=== PATIENT | female | born 1990 | race Caucasian/White ===

== ENCOUNTER 2019-11-26 18:49 | Inpatient (IN) | payer BC ==
[~2019-11-26] VITALS: Ht 157.5 cm; Wt 111.1 kg
[2019-11-26 18:57] VITALS: BP 121/71
--- NOTE | 2019-11-26 18:59 | NUR ---
PT PLACED IN TENT FOR COVID PRECAUTIONS
--- NOTE | 2019-11-26 19:08 | NUR ---
PT AMBULATED TO BED 3 WITH STEADY GAIT
--- NOTE | 2019-11-26 19:15 | NUR ---
A3 28 Y/O FEMALE PRESENTED TO ED C/O FEVER X 4 DAYS. PT + CHILLS & BODY ACHES X 4 DAYS. PT DENIES BEING AROUND ANYONE SICK. PT STATES SHE WENT TO ER ON FRIDAY C/O BACK AND ABD PAIN AND WAS DX CONSTIPATION. PT STATES HER LBM YESTERDAY BUT IT WAS "LITTLE KIRK." PT DENIES BYRD/N/V/D/DYSURIA. PT IS CURRENTLY 28 WEEKS . PT STATES SHE TOOK TYLENOL FOR FEVER AT 1600 TODAY. PMH: NONE NKA
--- NOTE | 2019-11-26 19:18 | NUR ---
PT SAO2 100% , DENIES SOB , NO OXYGEN NEEDED AT THIS TIME.
[2019-11-26] MEDS ORDERED: NACL 0.9% 1,000 ML IV ONE ×2 (19:21→21:30)
[2019-11-26] MEDS ORDERED: cefTRIAXone 1,000 MG VIAL ONE (19:47)
--- NOTE | 2019-11-26 19:50 | NUR ---
BLOOD LABS AND CULTURES COLLECTED BY ILYA CANNON AND HANDED TO LAB.
--- NOTE | 2019-11-26 20:00 | NUR ---
XRAY AT BEDSIDE.
[2019-11-26 20:34] LABS: BASOPHILS % (AUTO) 0.2 % (0.0-2.0); EOSINOPHILS % (AUTO) 0.1 % (0.0-4.0); HEMATOCRIT 36.6 % (36-48); HEMOGLOBIN 11.7 g/dL (12.0-16.0); LYMPHOCYTES # (AUTO) 0.7 K/uL (2.5-16.5); LYMPHOCYTES % (AUTO) 4.6 % (20.5-51.1); MEAN CORPUSCULAR HEMOGLOBIN 26 pg (27-31); MEAN CORPUSCULAR HGB CONC 32 g/dL (33-37); MEAN CORPUSCULAR VOLUME 82.4 fL (80-94); MONOCYTES # (AUTO) 1.5 K/uL (0.8-1.0); MONOCYTES % (AUTO) 10.2 % (1.7-9.3); NEUTROPHILS # (AUTO) 12.7 K/uL (1.8-7.7); NEUTROPHILS % (AUTO) 84.9 % (42.2-75.2); PLATELET COUNT (AUTO) 202 K/uL (140-450); RED BLOOD CELL COUNT(AUTO) 4.45 MIL/uL (4.20-5.40); RED CELL DISTRIBUTION WIDTH 15.3 % (11.6-13.7)
[2019-11-26 20:35] LABS: APPEARANCE,URINE CLOUDY (CLEAR); BILIRUBIN,URINE NEGATIVE (NEGATIVE); BLOOD, URINE 2+ (NEGATIVE); COLOR,URINE DARK YELLOW (YELLOW); LEUKOCYTE ESTERASE ,URINE 2+ (NEGATIVE); NITRITE, URINE POSITIVE (NEGATIVE); UGLUCOSE NEGATIVE (NEGATIVE)
[2019-11-26 20:46] LABS: ALBUMIN 2.3 g/dL (3.4-5.0); CARBON DIOXIDE 21.5 mmol/L (21-32); POTASSIUM 3.5 mmol/L (3.5-5.1); TOTAL BILIRUBIN 0.5 mg/dL (0.0-1.0)
[2019-11-26] MEDS ORDERED: ACETAMINOPHEN 650 MG SUPP RC ONE (21:00)
[2019-11-26] MEDS ORDERED: ACETAMINOPHEN EXTRA STRENGTH 500 MG TAB ONE (21:04)
[2019-11-26] MEDS ORDERED: ACETAMINOPHEN EXTRA STRENGTH 500 MG TAB PO ONE (21:05)
[2019-11-26 21:12] LABS: WBC,URINE 80-100 /HPF (0-5)
[2019-11-26 21:14] LABS: RBC,URINE 11-20 (MOD) /HPF (0-5)
--- NOTE | 2019-11-26 21:45 | NUR ---
PT RESTING IN BED, LOCKED AND IN LOWEST POSITION, VISIBLE RISE AND FALL OF CHEST, RR EVEN AND UNLABORED, HOB ELEVATED , SIDE RAIL X1.
[2019-11-27] MEDS ORDERED: DOXY25TA61 PO (00:10)
[2019-11-27] MEDS ORDERED: PYRI25TA11 PO (00:10)
[2019-11-27] MEDS ORDERED: ONDA4ODT2 PO (00:10)
--- NOTE | 2019-11-27 02:29 | NUR ---
PT AMBULATED TO RESTROOM W/ STEADY GAIT
--- NOTE | 2019-11-27 02:36 | NUR ---
PT RESTING IN BED , LOCKED AND IN LOWEST POSITION, HOB ELEVATED, VISIBLE RISE AND FALL OF CHEST, RR EVEN AND UNLABORED, VSS , SIDE RAIL X1.
--- NOTE | 2019-11-27 04:15 | NUR ---
PT SLEEPING IN BED, LOCKED AND IN LOWEST POSITION, AROUSABLE BY VERBAL STIMULATION, VISIBLE RISE AND FALL OF CHEST, RR EVEN AND UNLABORED, HOB ELEVATED, SIDE RAIL X1 , VSS.
--- NOTE | 2019-11-27 06:00 | NUR ---
PT AMBULATED TO RESTROOM W/ STEADY GAIT
--- NOTE | 2019-11-27 06:04 | NUR ---
PT AMBULATED TO BED W/ STEADY GAIT . PT RESTING IN BED , LOCKED AND IN LOWEST POSITION ,HOB ELEVATED, SIDE RAIL X1. VSS, RR EVEN AND UNLABORED.
--- NOTE | 2019-11-27 07:12 | NUR ---
REPORT GIVEN TO ILYA TOM FOR TRANSFER OF CARE.
--- NOTE | 2019-11-27 07:22 | NUR ---
Pt report received from ILYA Pfeiffer. Transfer of care at this time.
--- NOTE | 2019-11-27 08:00 | NUR ---
PT C/O 12/19 FRONTAL HEADACHE. CALLED RESIDENT DR. SARMIENTO AT [phone] LEFT NO ANSWER, WILL CALL LATER.
--- NOTE | 2019-11-27 08:10 | NUR ---
BREAKFAST PROVIDED TO PT TO BEDSIDE.
--- NOTE | 2019-11-27 08:47 | NUR ---
CALLED RESIDENT [phone] LEFT NO ANSWER. WILL CALL LATER.
[2019-11-27] MEDS ORDERED: HYDROcodone/APAP 5/325 MG 1 TAB TAB PO PRN (10:25)
--- NOTE | 2019-11-27 10:30 | NUR ---
DR. SARMIENTO IS EVALUATING PT AT BEDSIDE.
[2019-11-27] MEDS ORDERED: DOCUSATE SODIUM 100 MG GELCAP PO PRN (10:50)
[2019-11-27] MEDS ORDERED: HYDROcodone/APAP 7.5/325 MG 1 TAB PO PRN (10:50)
[2019-11-27] MEDS ORDERED: ONDANSETRON 4 MG/2 ML VIAL IM/IVP PRN (10:50)
--- NOTE | 2019-11-27 11:04 | NUR ---
MRSA SWAB OBTAINED AT BEDSIDE AND SENT TO THE LAB.
[2019-11-27 11:37] LABS: BASOPHILS % (AUTO) 0.1 % (0.0-2.0); EOSINOPHILS % (AUTO) 0.2 % (0.0-4.0); HEMATOCRIT 35.7 % (36-48); HEMOGLOBIN 11.5 g/dL (12.0-16.0); LYMPHOCYTES # (AUTO) 0.9 K/uL (2.5-16.5); LYMPHOCYTES % (AUTO) 5.2 % (20.5-51.1); MEAN CORPUSCULAR HEMOGLOBIN 27 pg (27-31); MEAN CORPUSCULAR HGB CONC 32 g/dL (33-37); MEAN CORPUSCULAR VOLUME 82.2 fL (80-94); MONOCYTES # (AUTO) 2.1 K/uL (0.8-1.0); MONOCYTES % (AUTO) 12.5 % (1.7-9.3); NEUTROPHILS # (AUTO) 13.9 K/uL (1.8-7.7); PLATELET COUNT (AUTO) 190 K/uL (140-450); RED BLOOD CELL COUNT(AUTO) 4.35 MIL/uL (4.20-5.40); RED CELL DISTRIBUTION WIDTH 15.5 % (11.6-13.7); WHITE BLOOD COUNT (AUTO) 16.9 K/uL (4.8-10.8)
[2019-11-27 11:48] LABS: PROTHROMBIN TIME 10.4 secs (10.8-13.4)
[2019-11-27 11:54] LABS: ALBUMIN 2.2 g/dL (3.4-5.0); ANION GAP 14.3 (8-16); CARBON DIOXIDE 21.9 mmol/L (21-32); CREATININE 0.6 mg/dL (0.6-1.3); POTASSIUM 3.2 mmol/L (3.5-5.1); TOTAL BILIRUBIN 0.5 mg/dL (0.0-1.0)
[2019-11-27] MEDS: NACL 0.9% 1,000 ML IV SCH ×3 (12:00→20:55)
[2019-11-27 12:04] LABS: CHOL/HDL RATIO 2.2 (1-4.5); FREE T4 (FREE THYROXINE) 1.31 ng/dL (0.76-1.46); MAGNESIUM 1.6 mg/dL (1.8-2.4); PHOSPHORUS 3.6 mg/dL (2.5-4.9); THYROID STIMULATING HORMONE 2.69 uIU/mL (0.34-3.74)
--- NOTE | 2019-11-27 12:44 | NUR ---
PT IS EATING LUNCH IN THE BED. VSS SHOWED ON THE MONITOR.
--- NOTE | 2019-11-27 13:25 | NUR ---
PT AMBULATED FROM BATHROOM TO ROOM 3 WITH STEADY GAIT.
--- NOTE | 2019-11-27 14:30 | NUR ---
PT IS RESTING IN THE BED WITH EYES CLOSED. VSS SHOWED ON MONITOR.
--- NOTE | 2019-11-27 15:30 | NUR ---
PT IS RESTING IN THE BED WITH EYES CLOSED. PT IS ON THE MONITOR WILL CONTINUE MONITORING PT'S VITAL SIGNS.
--- NOTE | 2019-11-27 16:20 | NUR ---
PT STATES SHE IS HAVING 8/10 FRONTAL HEADACHE. NORCO 7.5MG PO PRN GIVEN TO PT PER DR. SARMIENTO'D ORDER.
[2019-11-27] MEDS ORDERED: HYDROcodone/APAP 5/325 MG 1 TAB TAB ONE (16:21)
[2019-11-27] MEDS ORDERED: cefTRIAXone 1,000 MG VIAL ONE (16:28)
[2019-11-27] MEDS ORDERED: POTASSIUM CHLORIDE 10 MEQ TABER PO ONE (16:36)
[2019-11-27] MEDS: POTASSIUM CHLORIDE 10 MEQ TABER PO SCH (16:37)
[2019-11-27] MEDS: MAGNESIUM OXIDE 400 MG TAB PO SCH (16:40)
--- NOTE | 2019-11-27 17:30 | NUR ---
Patient will be admitted to care of PYELONEPHRITIS. Admited to TELE. Will go to room 103B. Belongings list completed. Report to ILYA MCKINNON.
--- NOTE | 2019-11-27 17:36 | NUR ---
RECEIVED REPORT FROM ER NURSE FOR CONTINUITY OF CARE. PT IS IN STABLE CONDITION, COOPERATIVE AND TALKING. WILL ROUND FREQUENTLY ON PT. THROUGHOUT THE SHIFT.
[2019-11-27 19:15] VITALS: BP 114/48
--- NOTE | 2019-11-27 19:35 | NUR ---
ENDORSED TO MORTAR CARRIER FOR CONTINUITY OF CARE. PT IN STABLE CONDITION AT THIS TIME.
--- NOTE | 2019-11-27 19:35 | NUR ---
Admitted from EDR TO TELEMETRY UNIT , with chief complaint of LEFT FLANK PAIN FOR 4 DAYS, AND FEVER FOR 2 DAYS , 28 y/o ,Female, Cooperative, AWAKE, A/OX4. AMBULATORY TO THE BR. IV SALINE LOCK AT THE LEFT AC G20, PATENT AND INTACT. HEAD TO TO ASSESSMENT DONE WITH CHARGE NURSE FLORENCIO, SKIN IS INTACT. DENIES FLANK PAIN AT THIS TIME, 010. PLAN OF CARE FOR THE SHIFT DISCUSSED, VERBALIZED UNDERSTANDING. oriented to call light, bed, phone,television, bathroom, smoking policy,isiting hours, procedures, ID bracelet on. Belongings list checked. Addendum: 11/27/19 at 2036 by Lakshmi Delvalle LVN CORRECTION: ADMITTED FROM ER
[2019-11-27] MEDS: ACETAMINOPHEN 325 MG TAB PO PRN (20:55)
--- NOTE | 2019-11-27 20:55 | NUR ---
TEMPERATURE CHECKED - 100.4 F, MEDICATED WITH TYLENOL 650 MG. PO.
--- NOTE | 2019-11-27 22:24 | NUR ---
RESTING IN BED, AFEBRILE - 98.9 F, NO COMPLAINT OF PAIN 0/10;.
[2019-11-28] VITALS: BP 108/64
--- NOTE | 2019-11-28 | NUR ---
VS STABLE, AFEBRILE - 98.3 F.
--- NOTE | 2019-11-28 00:15 | NUR ---
Patient's Plan of Care was discussed and reviewed with BOTTLE FILLER: KUMAR DUMONT
[2019-11-28] MEDS: NACL 0.9% 1,000 ML IV SCH ×5 (01:04→19:20)
--- NOTE | 2019-11-28 02:00 | NUR ---
SLEEPING COMFORTABLY IN BED.
[2019-11-28 04:00] VITALS: BP 104/55
--- NOTE | 2019-11-28 04:00 | NUR ---
RESTING IN BED, NO FEVER NOTED.
--- NOTE | 2019-11-28 07:00 | NUR ---
CONDITION REMAIN STABLE. WILL ENDORSE TO AM SHIFT NURSE FOR CONTINUITY OF CARE.
--- NOTE | 2019-11-28 07:45 | NUR ---
RECEIVED REPORT FROM NIGHT NURSE. AOX4, NO C/O PAIN, NO SOB, RESPIRATIONS ARE EVEN AND UNLABORED, AND AFEBRILE. PT IS 28WKS . SKIN IS INTACT. IV SITE ON LAC 20G RUNNING NS AT 140CC/HR, INFUSING WELL. PLAN OF CARE DISCUSSED. PT VERBALIZED UNDERSTANDING. ON STANDARD PRECAUTIONS. SAFETY MEASURES IN PLACE. CALL LIGHT WITHIN REACH. WILL CONTINUE TO MONITOR Addendum: 11/29/19 at 0740 by Gavin Ruby RN PT IS 21 WKS
[2019-11-28 08:00] VITALS: BP 119/69
[2019-11-28 08:06] LABS: BASOPHILS # (AUTO) 0.1 K/uL (0.00-0.22); BASOPHILS % (AUTO) 0.4 % (0.0-2.0); EOSINOPHILS # (AUTO) 0.1 K/uL (0-0.4); EOSINOPHILS % (AUTO) 0.4 % (0.0-4.0); HEMATOCRIT 34.3 % (36-48); HEMOGLOBIN 10.9 g/dL (12.0-16.0); LYMPHOCYTES # (AUTO) 0.9 K/uL (2.5-16.5); MEAN CORPUSCULAR HEMOGLOBIN 26 pg (27-31); MEAN CORPUSCULAR HGB CONC 32 g/dL (33-37); MEAN CORPUSCULAR VOLUME 83.1 fL (80-94); MONOCYTES # (AUTO) 1.7 K/uL (0.8-1.0); NEUTROPHILS # (AUTO) 10.4 K/uL (1.8-7.7); PLATELET COUNT (AUTO) 183 K/uL (140-450); RED BLOOD CELL COUNT(AUTO) 4.13 MIL/uL (4.20-5.40); RED CELL DISTRIBUTION WIDTH 15.1 % (11.6-13.7)
[2019-11-28 08:09] LABS: T4 (THYROXINE) 11.5 ug/dL (4.5-12.0)
[2019-11-28 08:13] LABS: ANION GAP 16.3 (8-16); CARBON DIOXIDE 19.3 mmol/L (21-32); CREATININE 0.5 mg/dL (0.6-1.3); POTASSIUM 3.6 mmol/L (3.5-5.1)
[2019-11-28 08:19] LABS: MAGNESIUM 1.5 mg/dL (1.8-2.4); PHOSPHORUS 3.2 mg/dL (2.5-4.9)
[2019-11-28] MEDS: POTASSIUM CHLORIDE 10 MEQ TABER PO SCH (08:41)
[2019-11-28] MEDS: MAGNESIUM OXIDE 400 MG TAB PO SCH ×2 (08:41→13:35)
--- NOTE | 2019-11-28 08:45 | NUR ---
DUE MORNING MEDS GIVEN. PO MEDS TOLERATED WELL
[2019-11-28 09:24] LABS: NEUTROPHILS % (AUTO) 79.7 % (42.2-75.2)
[2019-11-28 09:25] LABS: LYMPHOCYTES % (AUTO) 6.8 % (20.5-51.1); MONOCYTES % (AUTO) 12.7 % (1.7-9.3)
--- NOTE | 2019-11-28 11:45 | NUR ---
PT IN BED. NO C/O PAIN ,RESPIRATIONS ARE EVEN AND UNLABORED, AFEBRILE
[2019-11-28 12:00] VITALS: BP 127/75
--- NOTE | 2019-11-28 14:50 | NUR ---
SEEN AND EXAMINED BY DR. MULLEN. WITH NEW ORDERS NOTED AND CARRIED OUT
[2019-11-28 16:00] VITALS: BP 124/73
--- NOTE | 2019-11-28 17:15 | NUR ---
PT AWAKE IN BED. NO COMPLAINTS AT THIS TIME. NO APPARENT DISTRESS
--- NOTE | 2019-11-28 17:30 | NUR ---
L&D NURSES CAME AND CHECKED FHR. FHR 156
--- NOTE | 2019-11-28 18:56 | NUR ---
PT AWAKE IN BED. FLACC 0, NO SOB, RESPIRATIONS ARE EVEN AND UNLABORED. WILL ENDORSE TO NEXT SHIFT FOR CONTINUITY OF CARE
[2019-11-28 20:00] VITALS: BP 125/71
--- NOTE | 2019-11-28 20:10 | NUR ---
AWAKE,ALERT AND ORIENTED.RESP.UNLABORED IN RA.LUNGS CLEAR.IVF INFUSING WELL.CALL LIGHT IN REACH.NO C/O PAIN NOW.HR IS ST.WILL CONTINUE MONITORING.
[2019-11-28] MEDS: ACETAMINOPHEN 325 MG TAB PO PRN (20:23)
[2019-11-29] VITALS: BP 115/76
--- NOTE | 2019-11-29 00:15 | NUR ---
HAD C/O BYRD.TYLENOL PO GIVEN.NO C/O PAIN NOW.HR IS SR.IVF IS IN PROGRESS.
[2019-11-29 03:53] LABS: BARBITURATE, URINE NEGATIVE ng/ml (NEG <=200); BENZODIAZEPINE, URINE NEGATIVE ng/mL (NEG <=200); CANNABINOID, URINE NEGATIVE ng/mL (NEG <=50); COCAINE, URINE NEGATIVE ng/mL (NEG <=300); OPIATE, URINE NEGATIVE ng/mL (NEG <=2000); PHENCYCLIDINE SCREEN,URINE NEGATIVE ng/mL (NEG <=25)
[2019-11-29 04:00] VITALS: BP 120/65
[2019-11-29] MEDS: NACL 0.9% 1,000 ML IV SCH ×3 (04:10→19:58)
--- NOTE | 2019-11-29 04:10 | NUR ---
XDP=636.VS STABLE. HR SR.NO DISTRESS NOTED NOW.
[2019-11-29 06:18] LABS: BASOPHILS % (AUTO) 0.3 % (0.0-2.0); EOSINOPHILS # (AUTO) 0.2 K/uL (0-0.4); EOSINOPHILS % (AUTO) 1.6 % (0.0-4.0); HEMATOCRIT 34.7 % (36-48); HEMOGLOBIN 11.2 g/dL (12.0-16.0); LYMPHOCYTES # (AUTO) 1.1 K/uL (2.5-16.5); LYMPHOCYTES % (AUTO) 11.5 % (20.5-51.1); MEAN CORPUSCULAR HEMOGLOBIN 27 pg (27-31); MEAN CORPUSCULAR HGB CONC 32 g/dL (33-37); MEAN CORPUSCULAR VOLUME 82.9 fL (80-94); MONOCYTES # (AUTO) 0.9 K/uL (0.8-1.0); MONOCYTES % (AUTO) 9.5 % (1.7-9.3); NEUTROPHILS # (AUTO) 7.5 K/uL (1.8-7.7); NEUTROPHILS % (AUTO) 77.1 % (42.2-75.2); PLATELET COUNT (AUTO) 205 K/uL (140-450); RED BLOOD CELL COUNT(AUTO) 4.18 MIL/uL (4.20-5.40); RED CELL DISTRIBUTION WIDTH 15.4 % (11.6-13.7); WHITE BLOOD COUNT (AUTO) 9.7 K/uL (4.8-10.8)
[2019-11-29 06:34] LABS: ANION GAP 13.5 (8-16); CREATININE 0.7 mg/dL (0.6-1.3); POTASSIUM 3.5 mmol/L (3.5-5.1)
--- NOTE | 2019-11-29 07:20 | NUR ---
RECEIVED REPORT FROM NIGHT NURSE. AOX4, NO C/O PAIN, NO SOB, RESPIRATIONS ARE EVEN AND UNLABORED, AND AFEBRILE. PT IS 21WKS . SKIN IS INTACT. IV SITE ON LAC 20G RUNNING NS AT 140CC/HR, INFUSING WELL. PLAN OF CARE DISCUSSED. PT VERBALIZED UNDERSTANDING. ON STANDARD PRECAUTIONS. SAFETY MEASURES IN PLACE. CALL LIGHT WITHIN REACH. WILL CONTINUE TO MONITOR
--- NOTE | 2019-11-29 07:41 | NUR ---
SLEPT WELL.FXY=216.CONDITION IS STABLE NOW.
[2019-11-29 08:00] VITALS: BP 141/76
[2019-11-29] MEDS: POTASSIUM CHLORIDE 10 MEQ TABER PO SCH (08:25)
[2019-11-29] MEDS: MAGNESIUM OXIDE 400 MG TAB PO SCH ×2 (08:25)
--- NOTE | 2019-11-29 08:40 | NUR ---
DUE MORNING MEDS GIVEN. PO MEDS TOLERATED WELL
--- NOTE | 2019-11-29 10:22 | NUR ---
PATIENT HAS BEEN SCREENED AND CATEGORIZED MODERATE NUTRITION RISK. PATIENT WILL BE SEEN WITHIN 3-5 DAYS OF ADMISSION. 11/30/19 12/02/[address]
--- NOTE | 2019-11-29 10:43 | NUR ---
PT IN BED. NO C/O PAIN, NO SOB, AFEBRILE
[2019-11-29 12:00] VITALS: BP 115/66
--- NOTE | 2019-11-29 12:45 | NUR ---
PT IN BED. NO APPARENT DISTRESS. WILL CONTINUE TO MONITOR
--- NOTE | 2019-11-29 13:55 | NUR ---
PT WITH E. COLI IN BLOOD CULTURE PER ELTON FROM LAB. DR. SWEENEY NOTIFIED WITH ORDER FOR CONSULT WITH DR. GARZA
--- NOTE | 2019-11-29 14:30 | NUR ---
ENDORSED TO ILYA GOMEZ FOR CONTINUITY OF CARE
--- NOTE | 2019-11-29 15:16 | NUR ---
BARREL LINER NOTE: Patient's Orientation Unable To Assess Information Provided By LEISA ZUÑIGA - SIGNIFICANT OTHER Comments SW WAS UNABLE TO MEET PATIENT AT BEDSIDE DUE TO MEDICAL CONDITION. Circular Knitter Helper, Realtionship and Phone Number GHANSHYAM ZUÑIGA SIGNIFICANT OTHER/FISHELLIE [phone] [facility] Power of Grain Shipper No Does Patient Have a POLST No Identifying Problems No Social Work Triggers Is A Social Work Consult Needed No Mandate Report Filed No Explanation Of Identifying Problems PATIENT IS A 28-YEAR-OLD FEMALE ADMITTED FOR PYELONEPHRITIS. PATIENT HAS PMHX OF FOR 21 WEEKS, BUT 28 WEEKS REPORTED BY PATIENT. Admitted From Home Pre-Admission Level Of Functioning Status Independent/Ambulatory Prior Resources/Services Used In Last 12 Months No Prior Resources Used Prior DME No Prior DME Used Living Situation Lives With Family House Other Living Situation/Comment PER LEISA, PATIENT PROVIDED MAILING ADDRESS ON FACE SHEET. LEISA STATED THAT PATIENT LIVES WITH PARENTS IN [place] BUT COULD NOT RECALL ADDRESS. Patient Had Caregiver No Home Support No Caregiver Issues Financial Issues No Known Financial Issue Referral To The Financial Counselor Needed No Factors/Needs No D/C Needs Identified Pt/Rep Participated In Discharge Plan Yes Patient/Family Agress With Discharge Plan Yes Discharge Plan Comments TENTATIVE DISCHARGE PLAN IS FOR PATIENT TO RETURN HOME TO PARENT'S HOUSE. DC Plan Status Initiated
[2019-11-29] MEDS ORDERED: MAG SULF 2000 MG/WATER PREMIX 50 ML IV ONE (16:10)
[2019-11-29 18:41] VITALS: BP 131/77
--- NOTE | 2019-11-29 19:00 | NUR ---
IV INFILTRATED AND INSERT ANEW IV ON HER RIGHT HAND G 22. DRY AND INTACT, IVF INFUSING WELL @ 140 ML/HR.
--- NOTE | 2019-11-29 19:22 | NUR ---
REPORT GIVEN TO ILYA GOODWIN FOR CONTINUITY OF CARE. PATIENT RESTING IN BED IN STABLE CONDITION.
--- NOTE | 2019-11-29 19:56 | NUR ---
RECEIVED PATIENT IN STABLE CONDITION FROM AM SHIFT NURSE FOR CONTINUITY OF CARE. TELE PATIENT. RESPIRATIONS EVEN, UNLABORED. SKIN WARM, DRY. IV SITE TO RIGHT HAND 22G PATENT/INTACT, INFUSING FLUIDS WELL. NO C/O PAIN. NO S/S ACUTE DISTRESS. DR MULLEN IN TO DISCUSS PLAN OF CARE WITH PATIENT. ABDOMEN ROUNDED WITH NO S/S DISCOMFORT OR PAIN NOTED BY PATIENT. FHR 140. CALL LIGHT WITHIN REACH. ISOLATION PRECAUTIONS OBSERVED BY STAFF.
[2019-11-29 20:00] VITALS: BP 149/89
[2019-11-29] MEDS: MEROPENEM 1,000 MG in NACL 0.9% 100 ML IV SCH ×2 (20:25→20:27)
--- NOTE | 2019-11-29 21:00 | NUR ---
PATIENT CONTINUES IN STABLE CONDITION. VOIDED WELL. NO C/O PAIN. NO S/S ACUTE DISTRESS. CALL LIGHT WITHIN REACH. ISOLATION PRECAUTIONS OBSERVED BY ALL STAFF.
--- NOTE | 2019-11-29 22:31 | NUR ---
L&D NURSE CAME TO CHECK FHT AT 147-162 BPM. PATIENT IN STABLE CONDITION. CALL LIGHT WITHIN REACH.
--- NOTE | 2019-11-29 22:38 | NUR ---
PATIENT STATED THAT SS DOES NOT HAVE A PERMANENT RESIDENCE ON FILE BUT THAT HER PERMANENT ADDRESS IS [place] [address] [place] [address] [address] , [place] [address].
--- NOTE | 2019-11-29 23:11 | NUR ---
PATIENT TALKING ON PHONE WITH RISA. IN STABLE CONDITION. NO C/O PAIN. NO S/S ACUTE DISTRESS. CALL LIGHT WITHIN REACH.
[2019-11-30] VITALS: BP 98/53
--- NOTE | 2019-11-30 01:06 | NUR ---
PATIENT ASLEEP AND IN STABLE CONDITION. NO S/S ACUTE DISTRESS. CALL LIGHT WITHIN REACH. ISOLATION PRECAUTIONS OBSERVED BY ALL STAFF.
[2019-11-30] MEDS: NACL 0.9% 1,000 ML IV SCH ×3 (03:07→16:48)
--- NOTE | 2019-11-30 03:11 | NUR ---
MADE ROUNDS. PATIENT IS ASLEEP AND IN STABLE CONDITION. NO S/S ACUTE DISTRESS. CALL LIGHT WITHIN REACH. ISOLATION PRECAUTIONS OBSERVED BY ALL STAFF.
[2019-11-30 04:00] VITALS: BP 116/73
[2019-11-30] MEDS: MEROPENEM 1,000 MG in NACL 0.9% 100 ML IV SCH ×3 (04:10→20:22)
--- NOTE | 2019-11-30 05:43 | NUR ---
PATIENT AWAKE AND ON HER PHONE. NO C/O PAIN. NO S/S ACUTE DISTRESS. CALL LIGHT WITHIN REACH AT ALL TIMES.
[2019-11-30 06:05] LABS: BASOPHILS # (AUTO) 0.1 K/uL (0.00-0.22); BASOPHILS % (AUTO) 0.6 % (0.0-2.0); EOSINOPHILS # (AUTO) 0.2 K/uL (0-0.4); EOSINOPHILS % (AUTO) 1.8 % (0.0-4.0); HEMATOCRIT 33.1 % (36-48); LYMPHOCYTES # (AUTO) 1.6 K/uL (2.5-16.5); LYMPHOCYTES % (AUTO) 17.6 % (20.5-51.1); MEAN CORPUSCULAR HEMOGLOBIN 27 pg (27-31); MEAN CORPUSCULAR HGB CONC 33 g/dL (33-37); MEAN CORPUSCULAR VOLUME 81.8 fL (80-94); MONOCYTES # (AUTO) 0.9 K/uL (0.8-1.0); MONOCYTES % (AUTO) 9.7 % (1.7-9.3); NEUTROPHILS # (AUTO) 6.5 K/uL (1.8-7.7); NEUTROPHILS % (AUTO) 70.3 % (42.2-75.2); PLATELET COUNT (AUTO) 220 K/uL (140-450); RED BLOOD CELL COUNT(AUTO) 4.04 MIL/uL (4.20-5.40); WHITE BLOOD COUNT (AUTO) 9.2 K/uL (4.8-10.8)
[2019-11-30 06:16] LABS: CARBON DIOXIDE 20.6 mmol/L (21-32); CREATININE 0.7 mg/dL (0.6-1.3); POTASSIUM 3.6 mmol/L (3.5-5.1)
[2019-11-30 06:22] LABS: MAGNESIUM 1.7 mg/dL (1.8-2.4); PHOSPHORUS 4.4 mg/dL (2.5-4.9)
--- NOTE | 2019-11-30 07:00 | NUR ---
RECEIVED REPORT FORM NIGHT NURSE FOR CONTINUITY OF CARE, PT AAOX4, PT STABLE, PT RESTING IN BED, NO SIGNS OF DISTRESS NOTED, RESPIRATIONS ARE EVEN AND UNLABORED ON ROOM AIR, PT HAS RH22G INFUSING NS AT 140ML, BED IN LOW POSITION, CALL LIGHT WITHIN REACH.
[2019-11-30 08:00] VITALS: BP 136/70
[2019-11-30] MEDS: MAGNESIUM OXIDE 400 MG TAB PO SCH (08:53)
--- NOTE | 2019-11-30 08:56 | NUR ---
ADMINISTERED SCHEDULED MEDICATION, MEDICATION EDUCATION GIVEN, PT VERBALIZED UNDERSTANDING, PT IS STABLE, NO SIGNS OF DISTRESS NOTED, RESPIRATIONS ARE EVEN AND UNLABORED ON ROOM AIR, CALL LIGHT WITHIN REACH.
--- NOTE | 2019-11-30 11:24 | NUR ---
GAVE PT ICE WATER, PT IS STABLE WASHING HER HANDS BY SINK, PT STATES FHT 158 AND IT WAS DONE, PT IS STABLE, NO SIGNS OF DISTRESS NOTED, RESPIRATIONS ARE EVEN AND UNLABORED ON ROOM AIR,
[2019-11-30 12:00] VITALS: BP 123/76
--- NOTE | 2019-11-30 13:38 | NUR ---
ADMINISTERED SCHEDULED MEDICATION, MEDICATION EDUCATION GIVEN, PT VERBALIZED UNDERSTANDING, PT TOLERATED WELL, PT IS STABLE, NO SIGNS OF DISTRESS NOTED, CALL LIGHT WITHIN REACH.
--- NOTE | 2019-11-30 13:54 | NUR ---
DC PLANNING 28 YRS OLD FEMALE PATIENT WAS ADMITTED FROM HOME WITH A DX OF PYELONEPHRITIS. PT IS 21 WEEK . CXR NORMAL. RENAL ULTRASOUND SHOWED NORMAL SONOGRAPHIC APPEARANCE THE KIDNEYS. BLOOD CULTURE SHOWED ESBL OF THE BLOOD URINE CULTURE E-COLI. CONSULTED WITH DR GARZA , STARTED ON MEROPENEM IV . DC PLAN TO GO HOME WITH HOME HEALTH FOR IV ABX FAXED TO [facility] . TO FOLLOW . Addendum: 11/30/19 at 1404 by Denisse Sky CM FAXED PATIENTS CLINICALS TO [facility] [phone]. FAXED CLINICALS TO [facility]. WILL FOLLOW UP Addendum: 11/30/19 at 1637 by Denisse Sky CM FAXED CLINICALS TO [facility]. SPOKE TO ILANA FROM [facility] SHE REACHED OUT TO THE PATIENT REGARDING THE PRICING FOR MEROPENEM. THE PATIENT DID NOT AGREE TO PAY FOR THE ANTIBIOTIC. Addendum: 12/01/19 at 1437 by Hannah Clarke CM DC PLANNING DISCUSSED WITH THE PATIENT FOR THE IMPORTANCE OF THE IV ABX FOR HER URINE INFECTION. PT VERBALIZED AND AGREED TO PAY THE CO PAY. [facility] [phone] SPOKE WITH SARMAD AND WILL CONTACT PATIENT. CM TO FOLLOW Addendum: 12/02/19 at 1011 by Gallito MARQUES MARKEL CONTACTED - CYDNEY FOWLER [phone] EXT. [phone]. CYDNEY CONTACTED MARKEL AND REQUESTED A CALL BACK. MARKEL ENDORSED TO [facility]CEPTION[facility] DEANA WITH CONTACT NUMBER [phone]. Addendum: 12/02/19 at 1025 by Denisse Sky CM SPOKE WITH SARMAD AT [facility] HE STATED THAT THEY CAN NOT DELIVER MEDICATION TO THE PATIENTS HOME WITHOUT A NURSE Addendum: 12/02/19 at 1042 by Denisse Sky CM FAXED PATIENTS CLINICALS TO [facility] AND FOLLOWED UP WITH [facility] [phone]. HE STATED THAT THEY ARE NOT CONTRACTED WITH THE PATIENTS INSURANCE. Addendum: 12/02/19 at 1417 by Hannah Clarke CM DC PLANNING: CALLED [facility] SPOKE WITH VERENICE [phone] ACCEPTED PATIENT AND WILL START THE CARE TOMORROW AFTER DC. [facility] WILL SEND NURSE TO ADMINISTER PER DR KAT WILL GIVE THE LAST DOSE OF MERREM AT 6 PM AND PT CAN BE DISCHARGE. EXPLAINED TO THE PATIENT VERBALIZED UNDERSTANDING NOTIFIED ILYA BRIGGS.
--- NOTE | 2019-11-30 15:50 | NUR ---
PT IN ROOM CRYING, ASKED PT WHAT WAS WRONG, PT WANTS TO KNOW WHEN SHE IS GOING HOME, WILL NOTIFIED DR SWEENEY, PT IS OTHERWISE STABLE, CALL LIGHT WITHIN REACH.
[2019-11-30 16:00] VITALS: BP 141/84
[2019-11-30] MEDS ORDERED: MAGNESIUM OXIDE 400 MG TAB PO ONE (18:55)
--- NOTE | 2019-11-30 19:15 | NUR ---
RECEIVED BEDSIDE REPORT FROM DAY RN. PT IS AAOX4. AMBULATORY RESPIRATIONS ARE EQUAL AND UNLABORED ON ROOM AIR. LUNG SOUNDS ARE CLEAR. SKIN IS INTACT. PT IS 5MO . C/C FEVER. DX PYELONEPHRITIS ON IV MERREM. PLAN HOME HEALTH MERREM X8DAYS. IV ON RHA NS INFUSING AT 140ML/H PER ORDERS. POC DISCUSSED WITH PT. ON DROPLET PRECAUTION FOR ESBL OF BLOOD AND URINE. PT VERBALIZED UNDERSTANDING. WILL ROUND FREQUENTLY.
--- NOTE | 2019-11-30 20:22 | NUR ---
VSS. IV RX NOW INFUSING PER ORDERS. L&D NURSE A BEDSIDE FOR HEART TONE PER RN HR 147-163. ALL NEEDS MET. CALL LIGHT IS WITHIN REACH.
[2019-11-30] MEDS ORDERED: MAGNESIUM OXIDE 400 MG TAB ONE (21:37)
--- NOTE | 2019-11-30 21:38 | NUR ---
MG OX 800MG FOR MG 1.7 GIVEN AT THIS TIME. PT TOLERATED WELL. MED EDUCATION GIVEN. CALL LIGHT IS WITHIN REACH. WILL CONTINUE TO MONITOR.
--- NOTE | 2019-11-30 22:35 | NUR ---
GAVE BEDSIDE REPORT TO PA RN. PT ENDORSED IN STABLE CONDITION.
--- NOTE | 2019-11-30 23:26 | NUR ---
RECEIVED CONTINUITY OF CARE FROM ILYA MITCHELL. PATIENT IS IN STABLE CONDITION, SLEEPING IN BED. NO SIGNS OF DISTRESS NOTED. CALL WITHIN REACH. ALL STAFF TO OBSERVE SAFETY PRECAUTIONS.
--- NOTE | 2019-12-01 01:15 | NUR ---
CHECKED ON PATIENT. NO SIGNS OF DISTRESS NOTED. VISIBLE CHEST RISE. SAFETY PRECAUTIONS IN PLACE. WILL CONTINUE TO MONITOR.
--- NOTE | 2019-12-01 03:20 | NUR ---
PATIENT CALLED ABOUT IV PUMP BEEPING. MADE ASSESSMENT AND PATIENT IS IN STABLE CONDITION. WILL CONTINUE TO MONITOR.
[2019-12-01] MEDS: NACL 0.9% 1,000 ML IV SCH ×4 (03:38→22:01)
--- NOTE | 2019-12-01 05:02 | NUR ---
CHECKED ON PATIENT AND ADMINISTERED ROUTINE MEDICATION. PATIENT TOLERATED WELL.
[2019-12-01] MEDS: MEROPENEM 1,000 MG in NACL 0.9% 100 ML IV SCH ×3 (05:03→22:05)
[2019-12-01 06:08] LABS: MAGNESIUM 1.9 mg/dL (1.8-2.4); PHOSPHORUS 4.2 mg/dL (2.5-4.9)
--- NOTE | 2019-12-01 07:15 | NUR ---
PATIENT IS IN STABLE CONDITION. ENDORSED CONTINUITY OF CARE TO AM NURSE.
--- NOTE | 2019-12-01 07:35 | NUR ---
RECEIVED STABLE PATIENT FROM WASTE COTTON CLEANER NURSE FOR CONTINUITY OF CARE. PATIENT RESTING IN BED AND AWAKE, NO ACUTE DISTRESS NOTED. BREATHING EVEN AND UNLABORED. NO PAIN NOTED. CALL LIGHT IN REACH, SAFETY MEASURE IN PLACE. WILL CONTINUE TO MONITOR.
[2019-12-01 08:00] VITALS: BP 118/57
--- NOTE | 2019-12-01 08:30 | NUR ---
SN PASSED THE BREAKFAST TRAY, VITAL SIGNS CHECKED. PATIENT IN STABLE CONDITION. NO PAIN COMPLAINTS. INFORMED THE PATIENT SAFETY MEASURES, CALL LIGHT IN REACH. WILL CONTINUE TO MONITOR.
--- NOTE | 2019-12-01 09:00 | NUR ---
CHECKED PT, NO ACUTE DISTRESS NOTED, PT DENIES PAIN. CALL LIGHT IN REACH. WILL CONTINUE TO MONITOR.
--- NOTE | 2019-12-01 09:12 | NUR ---
CALLED L&D TO CHECK FATAL HEART RATE, WILL COME LATER DURING THIS SHIFT, WILL FOLLOW UP.
--- NOTE | 2019-12-01 11:00 | NUR ---
CHECKED PT, RESTING IN BED, NO COMPLAINT OF PAIN OR DISCOMFORT. IV INFUSING WELL, SAFETY MEASURES IN PLACE. WILL CONTINUE TO MONITOR.
[2019-12-01] MEDS ORDERED: MERO1VIA13 IV (12:00)
--- NOTE | 2019-12-01 13:03 | NUR ---
SCHEDULED IV ANTIBIOTIC MERREM ADMINISTERED @ 200 CC/HR. MEDICATION INSTRUCTED, PATIENT VERBALIZED UNDERSTANDING. PATIENT RESTING IN BED, NO S/S RESPIRATORY DISTRESS NOTED. PATIENT DENIES PAIN. WILL CONTINUE TO MONITOR.
--- NOTE | 2019-12-01 13:45 | NUR ---
L&D NURSE CAME TO CHECK FHT AT 150-160 BPM. PATIENT IN STABLE CONDITION. CALL LIGHT WITHIN REACH.
--- NOTE | 2019-12-01 14:00 | NUR ---
RECEIVED ORDER FROM DR. KYLIE COLEY, PATIENT IS GOING TO BE DISCHARGE HOME TODAY WITH 7 MORE DAYS OF IV ANTIBIOTICS MERREM. CALLED PICC LINE NURSE. AND CONSENT SIGNED BY THE PATIENT. WILL CALL [facility] FOR HOME HEALTH SERVICE.
--- NOTE | 2019-12-01 15:00 | NUR ---
PT RESTING IN BED COMFORTABLE, CALL LIGHT IN REACH, WILL CONTINUE TO MONITOR.
--- NOTE | 2019-12-01 15:26 | NUR ---
SPOKE WITH PICC LINE NURSE TO UPDATE ETA, PER DARREL AGUAYO WILL BE HERE IN ABOUT 1 HOUR. CALLED [facility], WORKING ON THE HOME HEALTH NOW. WILL CONTINUE TO FOLLOW UP.
--- NOTE | 2019-12-01 15:34 | NUR ---
DISCHARGE PLANNING: MARKEL CONTACTED [facility] LUCERO - CYDNEY FOWLER [phone] EXT. [phone] REGARDING CONTRACTED HOME HEALTH FACILITIES. MARKEL LEFT VM AND WILL FOLLOW UP. Addendum: 12/01/19 at 1544 by Gallito Paris SS MARKEL CONTACTED PATIENT'S MEDICAL GROUP TO FIND CONTRACTED HOME HEALTHS. MARKEL SPOKE TO [facility] [phone] WHO REFERRED MARKEL BACK TO [facility] FOR CONTRACTED FACILITIES.
[2019-12-01 16:00] VITALS: BP 139/79
[2019-12-01] MEDS: ACETAMINOPHEN 325 MG TAB PO PRN (17:24)
--- NOTE | 2019-12-01 17:24 | NUR ---
PT COMPLAINTS OF HEADACHE, PRN TYLENOL GIVEN. MED INSTRUCTED. PT VERBALIZED UNDERSTANDING. PER PT, PATIENT MAY NEED TO STAY ANOTHER NIGHT ACCORDING THE SW. WILL FOLLOW UP AND CONTINUE TO MONITOR.
--- NOTE | 2019-12-01 19:20 | NUR ---
ENDORSED STABLE PATIENT WITH NEWLY INSERTION PICC LINE AT RIGHT UPPER ARM TO SERVICE DESK DIRECTOR NURSE FOR CONTINUITY OF CARE.
--- NOTE | 2019-12-01 20:00 | NUR ---
RECEIVED REPORT FROM THE DAY RN REGARDING THE PT FOR CONTINUITY OF CARE. RECEIVED THE PT A/A/OX4, SITTING UP IN BED WATCHING TV.PT S/P PICC LINE INSERTION ON THE RIGHT UPPER ARM DOUBLE LUMEN. CXR DONE. DAY RN GOT AN ORDER TO USE THE PICC LINE AFTER THE CXR. IVF INFUSING ORDERED. DENIES PAIN AT THIS TIME. DISCUSSED POC WITH THE PT AND VERBALIZED UNDERSTANDING. INSTRUCTED THE PT TO CALL IF SHE NEEDS ANYTHING. CALLED L & D AND SPOKE WITH ILYA LILLY AND NOTIFIED HER THAT THE PT NEEDS HEART TONE CHECK TONIGHT. PER VIJAYA SHE WILL SEND SOMEONE TO SEE THE PT AND CHECK THE FHT. CALL LIGHT WITHIN REACH. WILL CONTINUE POC.
--- NOTE | 2019-12-01 22:00 | NUR ---
ADMINISTERED ALL SCHEDULED MEDICATION ORDERED. DC/D THE RT HAND IV, CANNULA INTACT. NO BLEEDING OR HEMATOMA NOTED ON THE SITE. INFUSING THE IVF NOW ON THE PICC LINE. SAFETY MEASURE IN PLACED.
[2019-12-02] VITALS: BP 116/66
--- NOTE | 2019-12-02 | NUR ---
VITAL SIGNS STABLE, AFEBRILE, SATING 97% ON RA. NO COMPLAIN OF PAIN AT THIS TIME.
--- NOTE | 2019-12-02 00:38 | NUR ---
ILYA DAY FROM L &D CAME AND CHECKED THE HEART TONE. REPORTED THAT THE FHT IS 144.
--- NOTE | 2019-12-02 02:00 | NUR ---
PATIENT ASLEEP. VISIBLE CHEST RISE AND FALL NOTED. NOT IN ANY DISTRESS. CALL LIGHT WITHIN REACH.
[2019-12-02] MEDS: MEROPENEM 1,000 MG in NACL 0.9% 100 ML IV SCH ×2 (05:00→12:39)
--- NOTE | 2019-12-02 05:00 | NUR ---
HUNG IV ANTIBIOTIC MERREM ORDERED. PT ASLEEP AND NO COMPLAIN AT THIS TIME. NOT IN ANY DISTRESS.
[2019-12-02] MEDS: NACL 0.9% 1,000 ML IV SCH ×2 (05:05→12:39)
--- NOTE | 2019-12-02 06:35 | NUR ---
PATIENT STABLE. NO ACUTE EVENTS THROUGHOUT THE NIGHT. NO SIGN AND SYMPTOMS OF DISTRESS NOTED. NO COMPLAIN AT THIS TIME. ALL NEEDS ATTENDED. CALL LIGHT WITHIN REACH. WILL ENDORSE THE PATIENT TO THE ONCOMING RN FOR CONTINUITY OF CARE.
[2019-12-02 07:09] LABS: MAGNESIUM 1.7 mg/dL (1.8-2.4); PHOSPHORUS 3.6 mg/dL (2.5-4.9)
--- NOTE | 2019-12-02 07:35 | NUR ---
RECEIVED BEDSIDE REPORT FROM NIGHTSHIFT NURSE. PT RESTING IN BED. ABLE TO MAKE NEEDS KNOWN. RESPIRATIONS EVEN AND UNLABORED WITH NO SOB OR RESPIRATORY DISTRESS. SKIN WARM AND DRY TO TOUCH, PICC LINE RIGHT UPPER ARM DOUBLE LUMEN IS CLEAN, DRY, AND INTACT. SAFETY MEASURES IN PLACE. WILL CONTINUE TO MONITOR
[2019-12-02 08:00] VITALS: BP 120/65
--- NOTE | 2019-12-02 09:13 | NUR ---
SPOKE TO L&D NURSE TO CHECK HEART TONES. NURSE VERBALIZED UNDERSTANDING AND SAID SHE WILL BE HERE SOON. SAFETY MEASURES IN PLACE. WILL CONTINUE TO MONITOR
--- NOTE | 2019-12-02 10:45 | NUR ---
CALLED DR. KAT TO LET HIM KNOW PT MAG IS 1.7. PER DR. KAT, HE SAID NO NEED FOR MAGNESIUM AT THIS TIME. SAFETY MEASURES IN PLACE. WILL CONTINUE TO MONITOR
--- NOTE | 2019-12-02 12:39 | NUR ---
ADMINISTERED SCHED MED PRESCRIBED PER MD ORDER. PT TOLERATED WELL. MEDICATION EDUCATION PERFORMED. PT VERBALIZED UNDERSTANDING. SAFETY MEASURES IN PLACE. WILL CONTINUE TO MONITOR
--- NOTE | 2019-12-02 13:44 | NUR ---
INFORMED PT THAT SHE WILL BE LEAVING AFTER HER LAST DOSE OF ATB PER DR. KAT'S REQUEST. PT VERBALIZED UNDERSTANDING. SAFETY MEASURES IN PLACE. WILL CONTINUE TO MONITOR
[2019-12-02] MEDS: ACETAMINOPHEN 325 MG TAB PO PRN (14:00)
--- NOTE | 2019-12-02 14:05 | NUR ---
PT CALLED AND COMPLAINED OF MILD HEADACHE. PRN TYLENOL ADMINISTERED PRESCRIBED PER MD ORDER. PT TOLERATED WELL. PT VERBALIZED UNDERSTANDING. SAFETY MEASURES IN PLACE. WILL CONTINUE TO MONITOR
[2019-12-02 15:12] VITALS: BP 120/65
--- NOTE | 2019-12-02 15:30 | NUR ---
L&D NURSE ARRIVED TO PERFORMED HEART TONES PRESCRIBED PER MD ORDER. HEART TONES RESULTED IN 143BPM. SAFETY MEASURES IN PLACE. WILL CONTINUE TO MONITOR
[2019-12-02 16:00] VITALS: BP 133/79
--- NOTE | 2019-12-02 17:07 | NUR ---
HOURLY ROUNDING. PT RESTING IN BED. ABLE TO MAKE NEEDS KNOWN. RESPIRATIONS EVEN AND UNLABORED WITH NO SOB OR RESPIRATORY DISTRESS. SKIN WARM AND DRY TO TOUCH. SAFETY MEASURES IN PLACE. WILL CONTINUE TO MONITOR
[2019-12-02] MEDS ORDERED: MEROPENEM 1,000 MG in NACL 0.9% 100 ML IV SCH (18:00)
--- NOTE | 2019-12-02 18:01 | NUR ---
ADMINISTERED SCHED MED PRESCRIBED PER MD ORDER. PT TOLERATED WELL. MEDICATION EDUCATION PERFORMED. PT VERBALIZED UNDERSTANDING. SAFETY MEASURES IN PLACE. WILL CONTINUE TO MONITOR
--- NOTE | 2019-12-02 19:06 | NUR ---
WENT OVER DISCHARGE INSTRUCTIONS WITH PATIENT. PT SIGNED APPROPRIATE DOCUMENTS. INSTRUCTED PT TO VISIT ED FOR ANY SIGNS OF DISTRESS. PT VERBALIZED UNDERSTANDING. PROVIDED PT WITH PICC LINE CARE MANAGEMENT MATERIALS. EDUCATED PT ON HOW TO CARE FOR PICC LINE WELL HANDOUTS ON HOW TO CARE FOR PICC LINE. PT VERBALIZED UNDERSTANDING. PT UP TO DATE ON VACCINES. REMOVED ID BAND, GAVE PT MASK, PT CHANGED INTO HER OWN CLOTHES. PT GATHERED ALL OF HER BELONGINGS AND WAS WHEELED OUT. PT IS STABLE TO GO HOME WITH HOME HEALTH
== END 2019-12-02 19:10 | disposition home or self-care (01) | DRG 831 ==
LOC: MED 18:49 → MMU 11-27 15:50 → MTU 11-28 11:40
PROVIDERS: ADMIT Family Medicine; ATTEND Family Medicine
PROC: 05HY33Z Insertion of Infusion Device into Upper Vein, Percutaneous Approach (ICD-10-PCS; principal; 2019-12-01)
PROC: B54MZZA Ultrasonography of Right Upper Extremity Veins, Guidance (ICD-10-PCS; 2019-12-01)
DX: O98.812 Other maternal infectious and parasitic diseases complicating pregnancy, second trimester (principal); A41.51 Sepsis due to Escherichia coli [E. coli]; E43 Unspecified severe protein-calorie malnutrition; N12 Tubulo-interstitial nephritis, not specified as acute or chronic; O23.03 Infections of kidney in pregnancy, third trimester; Z16.12 Extended spectrum beta lactamase (ESBL) resistance; D64.9 Anemia, unspecified; O25.13 Malnutrition in pregnancy, third trimester; O99.013 Anemia complicating pregnancy, third trimester; Z3A.28 28 weeks gestation of pregnancy
CPT/HCPCS: 36415; 71045; 76770; 76805; 80048; 80053; 80305; 81001; 82150; 83036; 83605; 83690; 83735; 83880; 84100; 84436; 84439; 84443; 84479; 84484; 85025; 85610; 85730; 87040; 87081; 87086; 87186; 93005; 96361; 96365; 99291; C1751; J0696; J2185; J7030; J7060; Q0092

== ENCOUNTER 2020-03-29 10:55 | Inpatient (IN) | payer BC, SELFPAY ==
[~2020-03-29] VITALS: Ht 160 cm; Wt 129.3 kg
[~2020-03-29 10:55] MED LIST: DOXY25TA61 PO; MERO1VIA13 IV; ONDA4ODT2 PO; PYRI25TA11 PO
[2020-03-29] MEDS ORDERED: LACTATED RINGERS 1,000 ML IV SCH (11:25)
[2020-03-29] MEDS ORDERED: OXYTOCIN 20 UNITS in LACTATED RINGERS 1,000 ML IV SCH (11:25)
[2020-03-29 12:38] LABS: BASOPHILS % (AUTO) 0.2 % (0.0-2.0); EOSINOPHILS # (AUTO) 0.1 K/uL (0-0.4); EOSINOPHILS % (AUTO) 0.6 % (0.0-4.0); HEMATOCRIT 34.3 % (36-48); HEMOGLOBIN 10.8 g/dL (12.0-16.0); LYMPHOCYTES # (AUTO) 1.5 K/uL (2.5-16.5); LYMPHOCYTES % (AUTO) 12.7 % (20.5-51.1); MEAN CORPUSCULAR HEMOGLOBIN 25 pg (27-31); MEAN CORPUSCULAR HGB CONC 32 g/dL (33-37); MEAN CORPUSCULAR VOLUME 77.9 fL (80-94); MONOCYTES % (AUTO) 8.1 % (1.7-9.3); NEUTROPHILS # (AUTO) 9.5 K/uL (1.8-7.7); NEUTROPHILS % (AUTO) 78.4 % (42.2-75.2); PLATELET COUNT (AUTO) 245 K/uL (140-450); RED CELL DISTRIBUTION WIDTH 17.2 % (11.6-13.7); WHITE BLOOD COUNT (AUTO) 12.2 K/uL (4.8-10.8)
[2020-03-29 12:41] LABS: APPEARANCE,URINE CLOUDY (CLEAR); BILIRUBIN,URINE NEGATIVE (NEGATIVE); BLOOD, URINE TRACE-I (NEGATIVE); COLOR,URINE DARK YELLOW (YELLOW); LEUKOCYTE ESTERASE ,URINE 1+ (NEGATIVE); NITRITE, URINE NEGATIVE (NEGATIVE); UGLUCOSE NEGATIVE (NEGATIVE)
[2020-03-29 12:55] LABS: RBC,URINE 0-5 /HPF (0-5)
[2020-03-29 12:55] LABS: ALBUMIN 2.2 g/dL (3.4-5.0); ANION GAP 11.7 (8-16); CARBON DIOXIDE 24.8 mmol/L (21-32); CREATININE 0.7 mg/dL (0.6-1.3); POTASSIUM 4.5 mmol/L (3.5-5.1); TOTAL BILIRUBIN 0.1 mg/dL (0.0-1.0)
[2020-03-29] MEDS ORDERED: OXYTOCIN 20 UNITS/LR PREMIX 1,000 ML IV ONE (13:57)
[2020-03-29] MEDS ORDERED: NACL 0.9% 1,000 ML IV SCH (14:45)
[2020-03-29 15:20] VITALS: BP 129/80
[2020-03-29] MEDS ORDERED: ROPIVACAINE 0.2%/NS PREMIX 200 ML EPI ONE (18:48)
[2020-03-29] MEDS ORDERED: ONDANSETRON 4 MG/2 ML VIAL ONE (21:53)
[2020-03-30] MEDS ORDERED: ROPIVACAINE 0.2%/NS PREMIX 200 ML EPI ONE (06:30)
[2020-03-30] MEDS: ACETAMINOPHEN EXTRA STRENGTH 500 MG TAB PO PRN (11:48)
--- NOTE | 2020-03-30 17:07 | NUR ---
PATIENT HAS BEEN SCREENED AND CATEGORIZED LOW NUTRITION RISK. PATIENT WILL BE SEEN WITHIN 7 DAYS OF ADMISSION. 04/04/[address]
[2020-03-30] MEDS ORDERED: OXYTOCIN 20 UNITS/LR PREMIX 1,000 ML IV ONE (17:33)
[2020-03-30] MEDS ORDERED: METHYLERGONOVINE 0.2 MG/ML AMP IM PRN (18:40)
[2020-03-30] MEDS ORDERED: SIMETHICONE 80 MG TAB.CHEW PO PRN (18:40)
[2020-03-30] MEDS ORDERED: DOCUSATE SODIUM 100 MG GELCAP PO PRN (18:40)
[2020-03-30] MEDS ORDERED: BENZOCAINE/MENTHOL 20%-0.5% 60 GM CAN TP PRN (18:40)
[2020-03-30] MEDS ORDERED: MEASLES, MUMPS, AND RUBELLA 1 VIAL SQVAC PRN (18:40)
[2020-03-30] MEDS ORDERED: bisacodyL 5 MG TABEC PO PRN (18:40)
[2020-03-30] MEDS ORDERED: OXYTOCIN 10 UNITS/ML VIAL IM PRN (18:40)
[2020-03-30] MEDS ORDERED: METHYLERGONOVINE 0.2 MG TAB PO PRN (18:40)
[2020-03-30] MEDS ORDERED: IBUPROFEN 800 MG TAB PO PRN (18:40)
[2020-03-31 08:39] LABS: HEMATOCRIT 31.2 % (36-48)
[2020-03-31] MEDS: ACETAMINOPHEN EXTRA STRENGTH 500 MG TAB PO PRN (09:11)
[2020-03-31] MEDS: IBUPROFEN 600 MG TAB PO PRN ×2 (14:29→21:03)
== END 2020-04-01 13:10 | disposition home or self-care (01) | DRG 807 ==
LOC: MFCC 10:55 → OBSVTOIN 11:31 → MFCC 03-30 20:50
PROVIDERS: ADMIT Obstetrics & Gynecology; ATTEND Obstetrics & Gynecology
PROC: 10E0XZZ Delivery of Products of Conception, External Approach (ICD-10-PCS; principal; 2020-03-30)
PROC: 3E0R3BZ Introduction of Anesthetic Agent into Spinal Canal, Percutaneous Approach (ICD-10-PCS; 2020-03-30)
PROC: 00HU33Z Insertion of Infusion Device into Spinal Canal, Percutaneous Approach (ICD-10-PCS; 2020-03-30)
DX: O13.4 Gestational [pregnancy-induced] hypertension without significant proteinuria, complicating childbirth (principal); Z37.0 Single live birth; O60.23X0 Term delivery with preterm labor, third trimester, not applicable or unspecified; Z3A.38 38 weeks gestation of pregnancy; Z87.440 Personal history of urinary (tract) infections; Z82.5 Family history of asthma and other chronic lower respiratory diseases; Z83.3 Family history of diabetes mellitus; Z20.828 Contact with and (suspected) exposure to other viral communicable diseases; O23.43 Unspecified infection of urinary tract in pregnancy, third trimester
CPT/HCPCS: 36415; 59409; 76815; 80053; 81001; 85018; 85025; 86592; 86886; 86900; 86901; 87086; G0378; J0696; J2405; J2590; J2795; J7060; J7120

== ENCOUNTER 2021-03-25 08:10 | Inpatient (IN) | payer BC, MEDICAID, SELFPAY ==
[~2021-03-25] VITALS: Ht 157.5 cm; Wt 133.4 kg
[2021-03-25] MEDS ORDERED: LACTATED RINGERS 1,000 ML IV SCH (08:55)
[2021-03-25] MEDS ORDERED: CITRIC ACID/SODIUM CITRATE 30 ML UDC PO SCH (08:55)
[2021-03-25] MEDS ORDERED: METOCLOPRAMIDE 10 MG/2 ML INJ VIAL IVP SCH (08:55)
[2021-03-25] MEDS ORDERED: PRETAB PO (09:11)
[2021-03-25 09:32] LABS: APPEARANCE,URINE CLEAR (CLEAR); BILIRUBIN,URINE NEGATIVE (NEGATIVE); BLOOD, URINE NEGATIVE (NEGATIVE); COLOR,URINE YELLOW (YELLOW); LEUKOCYTE ESTERASE ,URINE NEGATIVE (NEGATIVE); NITRITE, URINE NEGATIVE (NEGATIVE); UGLUCOSE NEGATIVE (NEGATIVE)
[2021-03-25 09:36] LABS: BASOPHILS % (AUTO) 0.2 % (0.0-2.0); EOSINOPHILS # (AUTO) 0.1 K/uL (0-0.4); EOSINOPHILS % (AUTO) 1.2 % (0.0-4.0); HEMOGLOBIN 10.9 g/dL (12.0-16.0); LYMPHOCYTES # (AUTO) 1.5 K/uL (2.5-16.5); LYMPHOCYTES % (AUTO) 14.8 % (20.5-51.1); MEAN CORPUSCULAR HEMOGLOBIN 24 pg (27-31); MEAN CORPUSCULAR HGB CONC 32 g/dL (33-37); MEAN CORPUSCULAR VOLUME 74.5 fL (80-94); MONOCYTES # (AUTO) 0.8 K/uL (0.8-1.0); MONOCYTES % (AUTO) 8.1 % (1.7-9.3); NEUTROPHILS # (AUTO) 7.7 K/uL (1.8-7.7); NEUTROPHILS % (AUTO) 75.7 % (42.2-75.2); PLATELET COUNT (AUTO) 272 K/uL (140-450); RED BLOOD CELL COUNT(AUTO) 4.56 MIL/uL (4.20-5.40); RED CELL DISTRIBUTION WIDTH 17.7 % (11.6-13.7); WHITE BLOOD COUNT (AUTO) 10.2 K/uL (4.8-10.8)
[2021-03-25 09:44] LABS: PROTHROMBIN TIME 9.2 secs (10.8-13.4)
[2021-03-25 11:44] LABS: CARBON DIOXIDE 23.5 mmol/L (21-32); CREATININE 0.8 mg/dL (0.6-1.3); POTASSIUM 4.5 mmol/L (3.5-5.1)
[2021-03-25 11:49] LABS: ALBUMIN 2.1 g/dL (3.4-5.0); TOTAL BILIRUBIN 0.2 mg/dL (0.0-1.0)
[2021-03-25] MEDS ORDERED: MIDAZOLAM 2 MG/2 ML VIAL ONE (12:22)
[2021-03-25] MEDS ORDERED: MORPHINE PRES FREE 10 MG/10 ML AMP IV ONE (12:23)
[2021-03-25] MEDS ORDERED: METHYLERGONOVINE 0.2 MG/ML AMP IM PRN (13:20)
[2021-03-25] MEDS ORDERED: OXYTOCIN 20 UNITS in LACTATED RINGERS 1,000 ML IV SCH ×2 (13:20→14:20)
[2021-03-25] MEDS ORDERED: MEASLES, MUMPS, AND RUBELLA 1 VIAL SQVAC ONE (13:20)
[2021-03-25] MEDS ORDERED: PROMETHAZINE 25 MG/ML VIAL IVP PRN (13:20)
[2021-03-25] MEDS ORDERED: diphenhydrAMINE 50 MG/ML VIAL ONE (13:22)
[2021-03-25] MEDS ORDERED: NALOXONE 0.4 MG/ML VIAL IVP PRN ×3 (14:20)
[2021-03-25] MEDS ORDERED: HYDROmorphone 1 MG/ML AMP IVP PRN (14:20)
[2021-03-25] MEDS ORDERED: ONDANSETRON 4 MG/2 ML VIAL IVP PRN ×2 (14:20)
[2021-03-25] MEDS ORDERED: MEPERIDINE 25 MG/ML SYR IVP PRN (14:20)
[2021-03-25] MEDS ORDERED: diphenhydrAMINE 50 MG/ML VIAL IVP PRN ×2 (14:20)
[2021-03-25] MEDS ORDERED: NALBUPHINE 10 MG/ML AMP IVP PRN (14:20)
[2021-03-25] MEDS: OXYTOCIN 20 UNITS/LR PREMIX 1,000 ML IV ONE ×2 (14:49→15:07)
[2021-03-25] MEDS: KETOROLAC 30 MG/ML VIAL IM/IVP SCH ×2 (17:59→23:59)
[2021-03-25] MEDS ORDERED: OXYTOCIN 20 UNITS/LR PREMIX 1,000 ML IV ONE (22:46)
[2021-03-26 06:14] LABS: BASOPHILS # (AUTO) 0.1 K/uL (0.00-0.22); BASOPHILS % (AUTO) 0.4 % (0.0-2.0); EOSINOPHILS # (AUTO) 0.2 K/uL (0-0.4); EOSINOPHILS % (AUTO) 1.2 % (0.0-4.0); HEMATOCRIT 31.9 % (36-48); HEMOGLOBIN 10.3 g/dL (12.0-16.0); LYMPHOCYTES # (AUTO) 1.4 K/uL (2.5-16.5); LYMPHOCYTES % (AUTO) 9.5 % (20.5-51.1); MEAN CORPUSCULAR HEMOGLOBIN 24 pg (27-31); MEAN CORPUSCULAR HGB CONC 32 g/dL (33-37); MEAN CORPUSCULAR VOLUME 75.1 fL (80-94); MONOCYTES # (AUTO) 1.1 K/uL (0.8-1.0); MONOCYTES % (AUTO) 7.7 % (1.7-9.3); NEUTROPHILS # (AUTO) 11.9 K/uL (1.8-7.7); NEUTROPHILS % (AUTO) 81.2 % (42.2-75.2); PLATELET COUNT (AUTO) 270 K/uL (140-450); RED BLOOD CELL COUNT(AUTO) 4.25 MIL/uL (4.20-5.40); WHITE BLOOD COUNT (AUTO) 14.6 K/uL (4.8-10.8)
[2021-03-26] MEDS: KETOROLAC 30 MG/ML VIAL IM/IVP SCH (06:55)
[2021-03-26] MEDS ORDERED: oxyCODONE/APAP 5/325 MG 1 TAB TAB PO PRN ×2 (07:00→07:10)
[2021-03-26] MEDS ORDERED: OXYTOCIN 20 UNITS/LR PREMIX 1,000 ML IV ONE (07:38)
--- NOTE | 2021-03-26 08:32 | NUR ---
PATIENT HAS BEEN SCREENED AND CATEGORIZED LOW NUTRITION RISK. PATIENT WILL BE SEEN WITHIN 7 DAYS OF ADMISSION. 03/31/[address]
[2021-03-26] MEDS: bisacodyL 10 MG SUPP RC SCH (09:16)
[2021-03-26] MEDS: IBUPROFEN 600 MG TAB PO SCH ×2 (12:08→18:05)
--- NOTE | 2021-03-26 12:40 | NUR ---
LOC AWAKE AND ALERT VERBALLY RESPONSIVE FOLLOWS COMMANDS GOOD CHEST RISE AND AERATION THROUGHOUT BILATERAL LUNG [place] AIRWAY PATENT TOLERATED INCENTIVE SPIROMETRY (IS) THERAPY WELL WITHOUT COMPLICATIONS NOTED ENCOURAGED PATIENT TO USE IS EVERY 1-2 HOURS WHILE AWAKE
[2021-03-27] MEDS: IBUPROFEN 600 MG TAB PO SCH ×3 (00:05→12:31)
[2021-03-27] MEDS ORDERED: CAMERA MC ONE (03:31)
[2021-03-27] MEDS: bisacodyL 10 MG SUPP RC SCH (09:00)
== END 2021-03-27 15:30 | disposition home or self-care (01) | DRG 788 ==
LOC: UNDOADMIN 08:10 → MLD 08:10 → MFCC 15:20
PROVIDERS: ADMIT Obstetrics & Gynecology; ATTEND Obstetrics & Gynecology
PROC: 10D00Z1 Extraction of Products of Conception, Low, Open Approach (ICD-10-PCS; principal; 2021-03-25 12:30)
DX: O32.1XX0 Maternal care for breech presentation, not applicable or unspecified (principal); Z3A.37 37 weeks gestation of pregnancy; Z37.0 Single live birth; O13.4 Gestational [pregnancy-induced] hypertension without significant proteinuria, complicating childbirth; O42.92 Full-term premature rupture of membranes, unspecified as to length of time between rupture and onset of labor; Z20.822 Contact with and (suspected) exposure to COVID-19
CPT/HCPCS: 36415; 59025; 76815; 80053; 81003; 85025; 85610; 85730; 86592; 86886; 86900; 86901; J0690; J1200; J1885; J2250; J2270; J2590; J7060; J7120; Q0092